=== PATIENT | female | born 1990 | race Caucasian/White ===

== ENCOUNTER 2019-01-23 09:46 | Day surgery (SDC) | payer OTHER ==
[2019-01-23] VITALS (14 sets, daily range): BP systolic 101–140; BP diastolic 62–78; PULSE 68–122; RESP 13–20; Ht 154.9 cm; Wt 67.3 kg
[~2019-01-23] VITALS: Ht 154.9 cm; Wt 67.3 kg
[~2019-01-23 09:46] MED LIST: BUPIVACAINE LIPOSOME/PF 266 MG/20 ML VIAL INFIL SCH; DESFLURANE 15 MIN ONE; LIDOCAINE 2% (SDV) 5 ML INJ ONE; SOD CHLORIDE 0.9% 1,000 ML IV SCH
[2019-01-23] MEDS ORDERED: PROPOFOL 40 ML ONE (09:56)
[2019-01-23] MEDS ORDERED: CEFAZOLIN 1 GM INJ ONE (09:56)
[2019-01-23] MEDS ORDERED: ONDANSETRON 4 MG INJ ONE (09:56)
[2019-01-23] MEDS ORDERED: FAMOTIDINE 20 MG INJ ONE (09:56)
[2019-01-23] MEDS ORDERED: FENTAnyl 50 MCG/ML VIAL ONE ×2 (09:56→12:52)
[2019-01-23] MEDS ORDERED: MIDAZOLAM 1 MG/ML 2 ML INJ ONE (09:56)
[2019-01-23] MEDS ORDERED: LEVO50TA71 PO (10:12)
[2019-01-23] MEDS ORDERED: GENTAMICIN 80 MG INJ ONE ×2 (10:52)
[2019-01-23] MEDS ORDERED: POLYMYXIN/BACITRACIN 1L IRRIG ONE (10:52)
[2019-01-23] MEDS ORDERED: EPINEPHrine 1 MG INJ ONE (10:53)
--- NOTE | 2019-01-23 10:53 | HPN ---
Date/Time of Note Date/Time of Note DATE: 01/23/19 TIME: 10:53 Interval H&P Admission Note Pt. seen H&P reviewed: No system changes DUNCAN BARROW MD January 23, 2019 10:53
[2019-01-23] MEDS ORDERED: ACETAMINOPHEN 325 MG TAB PO PRN (11:00)
[2019-01-23] MEDS ORDERED: ONDANSETRON 4 MG INJ IV PRN ×2 (11:00→11:30)
[2019-01-23] MEDS ORDERED: morphine 2 MG INJ IV PRN ×3 (11:00→11:30)
[2019-01-23] MEDS ORDERED: HYDROCODONE/APAP (5/325) TAB PO PRN (11:00)
--- NOTE | 2019-01-23 11:02 | PREAC ---
Date/Time of Note Date/Time of Note DATE: 01/23/19 TIME: 11:01 Anesthesia Eval and Record Evaluation Time Pre-Procedure Interview DATE: 01/23/19 TIME: 11:01 Age 28 Sex female NPO: 8 hrs Preoperative diagnosis hypertrophy of breast Planned procedure bilateral breast reduction Past Medical History Past Medical History: Includes Endo: Hypothyroid Surgery & Anesthesia Issues No known issue Meds Anticoagulation: No Beta Fadumo within 24 hr: No Reason Beta Fadumo not given: Pt. not on B-Fadumo Reported Medications Levothyroxine Sodium* (Levoxyl*) 50 Mcg Tablet, 50 MCG PO BEFORE BREAKFAST, #30 TAB 01/23/19 Current Medications Sodium Chloride 1,000 ml @ 25 mls/hr Q24H IV ; Start 01/23/19 at 07:00 Acetaminophen (Tylenol Tab) 1,000 mg ONCE ONCE PO ; Start 01/23/19 at 11:30; Stop 01/23/19 at 11:31 Bupivacaine Liposome (Exparel 266 Mg/ 20 ml Vial) 266 mg INTRA-OP INFIL ; Start 01/23/19 at 09:30 Acetaminophen/ Hydrocodone Bitart ([place] (5/325)) 2 tab Q4H PRN PO .PAIN 4-6; Start 01/23/19 at 11:00; Status UNV Morphine Sulfate (morphine) 2 mg ONCE PRN IV .SEVERE PAIN 7-10; Start 01/23/19 at 11:00; Status UNV Ondansetron HCl (Zofran Inj) 4 mg Q6H PRN IV NAUSEA/VOMITING; Start 01/23/19 at 11:00; Status UNV Acetaminophen (Tylenol Tab) 325 mg Q4H PRN PO MILD PAIN(1-3)OR ELEVATED TEMP; Start 01/23/19 at 11:00; Status UNV Meds reviewed: Yes Allergies Coded Allergies: No Known Allergies (Verified Allergy, Unknown, 01/23/19) Allergies Reviewed: Yes Labs/Studies Labs Reviewed: Reviewed by anesthesiologist test: Negative Studies: ECG (nsr, nml) Pre-procedure Exam Last vitals Vital Signs Date Temp Pulse Resp B/P (MAP) Pulse Ox O2 O2 Flow FiO2 Time Delivery Rate 01/23/19 98.2 68 16 101/62 97 Room Air 10:32 (75) Airway: Adequate mouth opening, Adequate thyromental dist Mallampati: Mallampati II Teeth: Normal Lung: Normal Heart: Normal ASA Physical Status ASA physical status: 2 Emergency: None Planned Anesthetic General/MAC: LMA Pre-operative Attestations Prior to commencing anesthesia and surgery, the patient was re-evaluated, there was verification of: *The patient's identity *The results of appropriate recent lab work and preoperative vital signs *The above evaluation not changing prior to induction *Anesthetic plan, risk benefits, alternative and complications discussed with patient/family; questions answered; patient/family understands, accepts and wishes to proceed. SHANNAN BOOTH January 23, 2019 11:02
--- NOTE | 2019-01-23 11:24 | OPR ---
Date/Time of Note Date/Time of Note DATE: 01/23/19 TIME: 11:17 Operative Report Free Text/Dictation Plastic Surgery Operative Report Preoperative diagnosis: macromastia and cervicalgia Postoperative diagnosis: same Procedure:bilateral breast reduction Surgeon: martinez Abebe.:MAGED guerrero Anesthesia:general EBL:min IV fluids:per flow sheet Findings:n/a Complications:none Dispo:home Indications for procedure:28 F presents for a bilateral breast reduction. We discussed the risks, benefits, and alternatives of performing this procedure including the risks of bleeding, infection, wound healing problems, changes in nipple sensation, partial or total nipple necrosis, asymmetry, fat necrosis, seroma, and for revision. She would like to be as large as possible. The patient states that she understands these risks and would like to proceed with the procedure. All questions were answered, no guarantees were given with regards the outcome of this procedure Description of procedure: Preoperatively, with the patient in the sitting position, a bilateral Espinosa pattern reduction medial pedicle mammoplasty with vertical limbs of 8cm and pedicle width of cm was marked. The patient was taken to the operating room at [facility] where general anesthesia was induced. Next, she was prepped and draped in the usual sterile fashion. First, the 42 mm areola marker was placed around the each areola and total of 40cc of a dilute exparel and epinephrine solution was injected into the planned area of de-epithelialization in each breast. The pedicles were then de-epithelialized with the 10 blade and scissors. Attention was then turned to the right breast where the incision around the pedicle was deepened with the peak plasma blade. Next, the remainder of the incisions were made with the peak plasma blade, and a medial flap was developed. A lateral flap was then developed with the plasma blade as well, and then the medial and lateral dissections were joined superiorly. The incisions around the pedicle were deepened to the level of the chest wall, taking special care to leave a fascial layer over the chest wall to preserve sensation, and then the tissue intervening between the flaps and pedicle was excised. The breast was irrigated with antibiotic irrigation, hemostasis was achieved with the bipolar cautery, and then the breast was towel clipped closed. Attention was then turned to the other breast where a similar procedure was carried out. The pedicle was incised, and then medial and lateral flaps were elevated, and then the dissection was joined superiorly. The tissue between the pedicle and the flaps was excised taking special care to leave a layer of fascia over the chest wall. The breast was irrigated with antibiotic irrigation, hemostasis was achieved with the bipolar cautery, and then the breast was towel clipped closed. The patient was sat up on the operating room table, symmetry was good, and therefore the patient was sat back down. A total of 60 mL of a dilute Exparel solution were then injected into the breasts. A #15 Quan drain was inserted into each breast through a stab incision laterally and was secured with 2-0 nylon suture. Next, the incisions were closed with a 2-0 vicryl suture on the T junction and then the medial and lateral pillars were closed with 2-0 vicryl suture. The remainder of the incisions were closed with 3-0 Vicryl sutures, 4-0 Monocryl suture, and then steri strips. The patient was sat up once again and the breasts appeared to be symmetric. The nipples were pink and viable at the completion of the case. The patient tolerated the procedure well, there were no complications, followup information and wound care instructions were given Preoperative Diagnosis macromastia and cervicalgia Postoperative Diagnosis same Operation/Procedure Performed bilateral breast reduction Surgeon see signature line Dermatologist And Dermatopathologist irma pena Anesthesia Type: general Estimated Blood Loss: minimal Transfusion none Specimen to pathology Grafts/Implants none Tubes/Drains bilateral breast drains Complications none Pt Condition Post Procedure: stable Procedure Description see dictation DUNCAN BARROW MD January 23, 2019 11:24
[2019-01-23] MEDS ORDERED: LABETALOL HCL 20MG INJ IV PRN (11:30)
[2019-01-23] MEDS ORDERED: HYDROmorphONE 1 MG/5 ML IV SYRINGE IV PRN ×3 (11:30)
[2019-01-23] MEDS ORDERED: MEPERIDINE 25 MG INJ IV PRN (11:30)
[2019-01-23] MEDS ORDERED: OXYCODONE/ACETAMINOPHEN (5/325) TAB PO PRN ×2 (11:30)
[2019-01-23] MEDS ORDERED: ACETAMINOPHEN 500 MG TAB PO ONE (11:30)
[2019-01-23] MEDS ORDERED: DIPHENHYDRAMINE 50 MG INJ IV PRN (11:30)
[2019-01-23] MEDS ORDERED: FENTAnyl 50 MCG/ML VIAL IV PRN ×2 (11:30)
[2019-01-23] MEDS ORDERED: ALBUTEROL 0.083% (NEB) 2.5 MG/3 ML AMP HHN PRN (11:30)
--- NOTE | 2019-01-23 14:01 | PAC ---
Date/Time of Note Date/Time of Note DATE: 01/23/19 TIME: 14:00 Post-Anesthesia Notes Post-Anesthesia Note Last documented vital signs Vital Signs Date Temp Pulse Resp B/P Pulse Ox O2 O2 Flow FiO2 Time (MAP) Delivery Rate 01/23/19 98.2 97. 68 130 16 17 101/62 97 98 Room 10:32 135 9 (75) 140 Air face mask 8L Activity: WNL Respiratory function: WNL Cardiovascular function: WNL Mental status: Baseline Pain reasonably controlled: Yes Hydration appropriate: Yes Nausea/Vomiting absent: Yes SHANNAN BOOTH January 23, 2019 14:01
[2019-01-23] MEDS ORDERED: MIDAZOLAM 1 MG/ML 2 ML INJ IV PRN (14:30)
== END 2019-01-23 16:40 | disposition home or self-care (01) ==
LOC: SDS 09:46
PROVIDERS: ATTEND Surgery Plastic and Reconstructive Surgery
DX: N62 Hypertrophy of breast (principal); M54.2 Cervicalgia; E03.9 Hypothyroidism, unspecified
CPT/HCPCS: 19318; 88305; C9290; J0171; J0690; J1170; J1200; J1580; J2250; J2405; J3010; Z7512; Z7610